=== PATIENT | female | born 1970 | race Caucasian/White ===

== ENCOUNTER 2019-03-10 14:44 | Day surgery (SDC) | payer BC, OTHER ==
[~2019-03-10] VITALS: Ht 170.2 cm; Wt 52.7 kg
[2019-03-10 15:52] VITALS: BP 112/77
[2019-03-10] MEDS ORDERED: ESTRADOL (15:56)
[2019-03-10] MEDS ORDERED: METO50TA82 PO (15:56)
[2019-03-10] MEDS ORDERED: FENTANYL PF 250 MCG/5ML ONE (16:20)
[2019-03-10] MEDS ORDERED: MIDAZOLAM 1 MG/ML, 2ML ONE (16:20)
[2019-03-10] MEDS ORDERED: LACTATED RINGERS 1,000 ML IV SCH ×2 (16:27→19:30)
[2019-03-10] MEDS ORDERED: ACETAMINOPHEN 500 MG TABLET PO ONE (16:30)
[2019-03-10] MEDS ORDERED: GABAPENTIN 300 MG CAPSULE PO ONE (16:30)
[2019-03-10] MEDS ORDERED: ONDANSETRON ODT 8 MG PO ONE (16:30)
[2019-03-10] MEDS ORDERED: SCOPOLAMINE PATCH, 1.5MG PATCH.TD72 TD ONE (16:30)
[2019-03-10] MEDS ORDERED: EPHEDRINE 50 MG/ML, 1ML ONE (16:49)
[2019-03-10] MEDS ORDERED: BUPIVACAINE/PF-EPI 0.5% 1:200K INFIL ONE (17:08)
[2019-03-10] MEDS ORDERED: METOPROLOL 1 MG/ML, 5ML IV PRN (17:30)
[2019-03-10] MEDS ORDERED: MIDAZOLAM 1 MG/ML, 2ML IV PRN (17:30)
[2019-03-10] MEDS ORDERED: FENTANYL PF 100 MCG/2ML IV PRN (17:30)
[2019-03-10] MEDS ORDERED: OXYcodone 5 MG/5 ML ORAL.SOL UDC PO PRN (17:30)
[2019-03-10] MEDS ORDERED: PROMETHAZINE 25 MG/ML, 1ML IV PRN (17:30)
[2019-03-10] MEDS ORDERED: hydrALAzine 20 MG/ML, 1ML IV PRN (17:30)
[2019-03-10] MEDS ORDERED: HYDROmorphone 2 MG/ML, 1ML IVPush PRN (17:30)
[2019-03-10] MEDS ORDERED: ALBUTEROL/IPRATROPIUM 2.5MG/0.5MG, 3 ML NPPB PRN (17:30)
[2019-03-10] MEDS ORDERED: ONDANSETRON 2MG/ML, 2ML IV PRN (17:30)
[2019-03-10] MEDS ORDERED: MEPERIDINE/PF 25MG/0.5ML IVPush PRN (17:30)
[2019-03-10] MEDS ORDERED: ONDANSETRON 2MG/ML, 2ML ONE (17:37)
[2019-03-10] MEDS ORDERED: DEXAMETHASONE 4 MG/ML, 1ML ONE (17:37)
[2019-03-10] MEDS ORDERED: CEFAZOLIN 1,000 MG ONE (17:37)
[2019-03-10] MEDS ORDERED: PROPOFOL 10 MG/ML, 20ML ONE (17:37)
[2019-03-10] MEDS ORDERED: GLYCOPYRROLATE 0.2MG/1ML, 5ML ONE (17:39)
[2019-03-10] MEDS ORDERED: ROCURONIUM 10MG/ML,5ML ONE (17:40)
[2019-03-10] MEDS ORDERED: NEOSTIGMINE 1 MG/ML, 10ML ONE (17:40)
[2019-03-10] MEDS ORDERED: SUCCINYLCHOLINE 20 MG/ML, 10ML ONE (17:40)
[2019-03-10] MEDS ORDERED: FENTANYL PF 100 MCG/2ML ONE (18:26)
[2019-03-10] MEDS ORDERED: OXYcodone 5 MG/5 ML ORAL.SOL UDC ONE (18:26)
[2019-03-10] MEDS ORDERED: MORPHINE SULFATE 4 MG/ML, 1ML IVPush PRN (19:30)
[2019-03-10] MEDS ORDERED: ONDANSETRON 2MG/ML, 2ML IVPush PRN (19:30)
[2019-03-11] MEDS ORDERED: BUPIVACAINE/EPI 0.5% 1:200K ONE (11:53)
== END 2019-03-10 22:34 | disposition home or self-care (01) ==
LOC: OR 14:44 → 4NOR 19:11 → OR 22:34
PROVIDERS: ATTEND Surgery
DX: K81.1 Chronic cholecystitis (principal); K82.8 Other specified diseases of gallbladder; Z72.89 Other problems related to lifestyle; Z79.899 Other long term (current) drug therapy; Z88.5 Allergy status to narcotic agent; Z90.710 Acquired absence of both cervix and uterus; Z80.0 Family history of malignant neoplasm of digestive organs
CPT/HCPCS: 47562; 88304; 93005; J0330; J0690; J1100; J2250; J2405; J2704; J2710; J3010; J7120; Q0162; G0378